=== PATIENT | male | born 1960 | race Caucasian/White ===

== ENCOUNTER 2016-04-03 15:43 | Emergency (ER) | payer OTHER ==
[2016-04-03 16:38] VITALS: RESP 16; TEMP 98.6
--- NOTE | 2016-04-03 16:41 | UCPHY ---
H & P Time Seen by Provider: 04/03/16 16:39 Patient Type: New HPI/ROS: CHIEF COMPLAINT: Headache. HISTORY OF PRESENT ILLNESS: The patient is a 56-year-old male with no migraine history who presents with "blinding" headache since waking up this morning. It began behind his forehead but has now spread to his temples as well. Patient states that this is similar to headaches that he develops when he has pressure headaches really related to change in the weather. He used his typical allergy drops and his nasal sinus wash, and took an Advil. Typically this would resolve the patient's discomfort. It is reported to be waxing and waning in nature. He denies alleviating or provoking factors. He admits associated chills, fatigue, and nausea. He denies head trauma, numbness or tingling in his extremities, fever, vomiting, recent sinus congestion. He denies international travel. He does sometimes get pressure headaches with changes in weather but reports this headache as being different in nature, mostly because it did not resolve with his typical treatment.. He had sinusitis mid-March that cleared with Augmentin. REVIEW OF SYSTEMS: Aside from elements discussed in the HPI, a comprehensive 10-point review of systems was reviewed and is negative. PAST MEDICAL HISTORY: Knee surgery. 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 VITAL SIGNS: Reviewed by me GENERAL: Well-developed, well-nourished, resting comfortably in no respiratory distress. HEENT: Atraumatic. Eyes: No icterus, no injection. Mouth: moist mucous membranes. No erythema or lesions. Neck: supple with no adenopathy. LUNGS: Clear to auscultation bilaterally, no wheezes, rhonchi or rales. CARDIAC: Regular rate and rhythm, no rubs, murmurs or gallops. ABDOMEN: Soft, nontender, nondistended, bowel sounds normal. BACK: No CVA tenderness. EXTREMITIES: No trauma. No edema. Range of motion is normal throughout. NEURO: Alert and oriented, grossly nonfocal. SKIN: Warm and dry, no rash. PSYCHIATRIC: Normal mentation, no agitation. Portions of this note were transcribed by a medical physicist. I personally performed a history, physical exam, medical decision making, and confirmed accuracy of information the transcribed note. Smoking Status: Never smoked Constitutional: Initial Vital Signs Temperature (C) 37 C 04/03/16 16:32 Heart Rate 51 L 04/03/16 16:32 Respiratory Rate 16 04/03/16 16:32 Blood Pressure 136/92 H 04/03/16 16:32 O2 Sat (%) 100 04/03/16 16:32 O2 Delivery Mode Room Air Allergies/Adverse Reactions: No Known Allergies Allergy (Unverified 04/03/16 16:38) Home Medications: Medication Instructions Recorded Aspirin 81mg (*) 04/03/16 Hydrocodone/APAP 5/325 [[place] 1 tab PO Q6H PRN #10 tab 04/03/16 5/325 (RX)] Multivitamin 04/03/16 Medical Decision Making - Diagnostics Imaging: Study: CT of the head. Indication: Headache. Results: Mild maxillary sinus disease on the left. The study was read by the radiologist, Dr. Gómez. I viewed the images myself on the PACS system. ED Course/Re-evaluation: An IV was established and labs ordered. Head CT ordered. 1L IV saline, 25mg IV Benadryl, 30mg IV Toradol, 4mg IV Zofran administered for headache. Patient was reexamined at 6:00 p.m.: He reports his headache is gone other than a slight amount of pressure. He is sleepy from the Benadryl. We discussed the possibility of subarachnoid hemorrhage. We discussed possible lumbar puncture. Patient feels like the headache was quite reminiscent of his prior sinus headaches other us more severe. He feels comfortable being discharged home for further rest. He was worried about influenza and was told that his influenza screen was negative. His is coming to pick him up. Patient was discharged with short prescription of narcotic pain medication to use as needed for any residual headache pain. We discussed other adjuvant for sinusitis such as Flonase and Afrin nasal spray, neither which the patient can take secondary to history of nose bleeds when he use those. He will follow up with his ENT physician. Differential Diagnosis: After history was obtained, and the physical exam performed, a differential for headache was considered including, but not limited to, subarachnoid hemorrhage, migraine headache, tension headache and infectious causes such as meningitis, sinusitis, encephalitis. - Data Points Laboratory Results: Laboratory Results 04/03/16 17:20 04/03/16 17:20 04/03/16 04/03/16 17:20 17:00 WBC 5.22 10^3/uL (3.80-9.50) RBC 5.15 10^6/uL (4.40-6.38) Hgb 15.2 g/dL (13.7-17.5) Hct 44.1 % (40.0-51.0) MCV 85.6 fL (81.5-99.8) MCH 29.5 pg (27.9-34.1) MCHC 34.5 g/dL (32.4-36.7) RDW 12.8 % (11.5-15.2) Plt Count 199 10^3/uL (150-400) MPV 10.4 fL (8.7-11.7) Neut % (Auto) 69.9 % (39.3-74.2) Lymph % (Auto) 20.5 % (15.0-45.0) Nolan % (Auto) 7.7 % (4.5-13.0) Eos % (Auto) 1.1 % (0.6-7.6) Baso % (Auto) 0.8 % (0.3-1.7) Nucleat RBC Rel Count 0.0 % (0.0-0.2) Absolute Neuts (auto) 3.65 10^3/uL (1.70-6.50) Absolute Lymphs (auto) 1.07 10^3/uL (1.00-3.00) Absolute Monos (auto) 0.40 10^3/uL (0.30-0.80) Absolute Eos (auto) 0.06 10^3/uL (0.03-0.40) Absolute Basos (auto) 0.04 10^3/uL (0.02-0.10) Absolute Nucleated RBC 0.00 10^3/uL (0-0.01) Immature Gran % 0.0 % (0.0-1.1) Immature Gran # 0.00 10^3/uL (0.00-0.10) Sodium 139 mEq/L (134-144) Potassium 4.5 mEq/L (3.5-5.2) Chloride 104 mEq/L (97-110) Carbon Dioxide 26 mEq/l (22-31) Anion Gap 9 mEq/L (8-16) BUN 18 mg/dL (7-23) Creatinine 0.9 mg/dL (0.7-1.3) Estimated GFR > 60 Glucose 87 mg/dL (70-100) Calcium 9.3 mg/dL (8.5-10.4) Influenza Typ A,B (DFA) NEGATIVE FOR FLU (NEGATIVE) Medications Given: Discontinued Medications Diphenhydramine HCl (Benadryl Injection) 25 mg IVP EDNOW ONE Stop: 04/03/16 16:58 Last Admin: 04/03/16 17:20 Dose: 25 mg Sodium Chloride (Ns) 1,000 mls @ 0 mls/hr IV ONCE ONE PRN Reason: Wide Open Stop: 04/03/16 16:58 Last Admin: 04/03/16 17:20 Dose: 1,000 mls Ketorolac Tromethamine (Toradol) 30 mg IVP EDNOW ONE Stop: 04/03/16 16:58 Last Admin: 04/03/16 17:20 Dose: 30 mg Ondansetron HCl (Zofran Odt) 4 mg PO EDNOW ONE Stop: 04/03/16 16:44 Last Admin: 04/03/16 17:38 Dose: Not Given Ondansetron HCl (Zofran) 4 mg IVP EDNOW ONE Stop: 04/03/16 16:58 Last Admin: 04/03/16 17:20 Dose: 4 mg Departure - Departure Disposition: Home, Routine, Self-Care Clinical Impression: Headache, Sinusitis Condition: Good Instructions: Sinusitis (ED), Acute Headache (ED) Additional Instructions: Okay to take hydrocodone if needed for any residual pain. I recommend Ibuprofen (Motrin, Advil) or Naproxen Sodium (Aleve) for mild-to- moderate pain and anti-inflammatory effects. You may take either one, but do not take both. Your dose is: Ibuprofen 600 mg every 6-8 hours with food. OR Naproxen Sodium (Aleve) 220 mg every 12 hours. Please return to Urgent Care or seek care in the emergency department if your headache is not improving as expected, be seen sooner if you develop a fever, significant severe worsening of the headache pain, vomiting, neck pain, or other concerns. Referrals: Diamante Katz MD [Primary Care Provider] - As per Instructions Prescriptions: Hydrocodone/APAP 5/325 [[place] 5/325 (RX)] 1 tab PO Q6H PRN #10 tab PRN Reason: Pain - PQRS PQRS Measurement: Not applicable. Report Scribed for: Vee Yu Report Scribed by: Kane Tucker Date of Report: 04/03/16 Time of Report: 16:40
[2016-04-03] MEDS ORDERED: ONDANSETRON DISINTEGRATING 4 MG TAB PO ONE (16:43)
[2016-04-03] MEDS ORDERED: NS 1,000 ML IV ONE (16:57)
[2016-04-03] MEDS ORDERED: KETOROLAC 30 MG/1 ML SDV IVP ONE (16:57)
[2016-04-03] MEDS ORDERED: ONDANSETRON 4 MG/2 ML VIAL IVP ONE (16:57)
[2016-04-03 17:23] LABS: ADD DIFF? NO; ADD MORPH? NO; ADD SCAN? NO; ATYPICAL LYMPHOCYTE FLAG 10 (0-99); FRAGMENT RBC FLAG 0 (0-99); HEMATOCRIT 44.1 % (40.0-51.0); HEMOGLOBIN 15.2 g/dL (13.7-17.5); LEFT SHIFT FLG 0 (0-99); LIPEMIA HEMOLYSIS FLAG 90 (0-99); MEAN CELL HEMOGLOBIN 29.5 pg (27.9-34.1); MEAN CELL HEMOGLOBIN CONCENTR. 34.5 g/dL (32.4-36.7); MEAN CELL VOLUME 85.6 fL (81.5-99.8); MEAN PLATELET VOLUME 10.4 fL (8.7-11.7); PLATELET CLUMPS FLAG 0 (0-99); PLATELET COUNT 199 10^3/uL (150-400); RED BLOOD CELL COUNT 5.15 10^6/uL (4.40-6.38); RED CELL DISTRIBUTION WIDTH 12.8 % (11.5-15.2)
--- NOTE | 2016-04-03 17:29 | CT ---
CT Scan of Head (Without Contrast) Clinical Indications: Worse headache of patient's life. Technique: Axial CT images were acquired from foramen magnum through vertex, without intravenous con trast. Soft tissue and bone windows were reviewed on the computer workstation. Images were reconstr ucted down to 1.25 mm images. Dose reduction techniques were utilized. Findings: No mass lesions are seen, and there is no evidence of intracranial hemorrhage or acute inf arct. The ventricles and subarachnoid spaces are normal in size for this age group. Bone windows re veal no sign of fracture. There is maxillary sinus disease with layering fluid on the left. Impression: Normal CT of the head. Maxillary sinus disease. Critical results relayed by Dr. Gómez to Dr. Yu April 03, 2016, 1726 hours.
[2016-04-03 17:38] LABS: ANION GAP 9 mEq/L (8-16); CALCIUM 9.3 mg/dL (8.5-10.4); CARBON DIOXIDE 26 mEq/l (22-31); CHLORIDE 104 mEq/L (97-110); CREATININE 0.9 mg/dL (0.7-1.3); GLOMERULAR FILTRATION RATE > 60; GLUCOSE 87 mg/dL (70-100); POTASSIUM 4.5 mEq/L (3.5-5.2); SODIUM 139 mEq/L (134-144)
[2016-04-03 18:06] VITALS: BP 136/84; PULSE 55; O2SAT 99
== END 2016-04-03 19:10 | disposition home or self-care (01) ==
LOC: CED 15:43
DX: J32.9 Chronic sinusitis, unspecified (principal); R51 Headache
CPT/HCPCS: 70450-PO; 80048-PO; 85025-PO; 87400-PO; 96361-PO; 96374-PO; 96375-PO; G0463-PO

== ENCOUNTER → 2017-02-01 | Outpatient (CLI) | payer OTHER ==
[~2017-02-01] MED LIST: GADOBUTROL 10 ML VIAL IVP ONE
== END ==
LOC: FIMAGING 13:17
PROVIDERS: ATTEND Urology
DX: R97.20 Elevated prostate specific antigen [PSA] (principal)
CPT/HCPCS: A9585